=== PATIENT | female | born 1975 | race Two or more races ===

== ENCOUNTER → 2016-06-12 | Outpatient (CLI) | payer BC ==
[2016-06-12 14:35] LABS: CHLORIDE,CL 110 mmol/L (98-110); SODIUM,NA 140 mmol/L (136-146)
== END ==
LOC: MW.CHRC 13:40
PROVIDERS: ATTEND Family Medicine
DX: E05.00 Thyrotoxicosis with diffuse goiter without thyrotoxic crisis or storm (principal); E03.9 Hypothyroidism, unspecified
CPT/HCPCS: 36415; 80053; 84439; 84443; 84481; 85025

== ENCOUNTER → 2016-06-23 | Outpatient (CLI) | payer BC | LOC: MW.CHRC 09:52 | PROVIDERS: ATTEND Family Medicine | DX: E05.00 Thyrotoxicosis with diffuse goiter without thyrotoxic crisis or storm (principal) | CPT/HCPCS: 36415; 80048; 84439; 84443; 84481; 85025 ==

== ENCOUNTER → 2016-07-14 | Outpatient (CLI) | payer BC ==
--- NOTE | 2016-07-24 16:54 | NM ---
EXAM DATE: 07/14/16 PATIENT'S AGE: 40 ADDENDUM: Additional images were obtained at rest following the administration of 26.3 mCi of technetium 99m labeled sestamibi. IMPRESSION: The previously demonstrated small defect along the anterior wall towards the apex is not well characterized on the rest imaging. The ejection fraction is mildly decreased at 46%. TID is 1.23. A trace myocardial ischemia along the anterior wall of the midportion to the base is not excluded. EXAMINATION: Nuclear medicine myocardial perfusion study HISTORY: Atrial fibrillation. PROCEDURE: Following intravenous administration of 0.4 mg of Lexiscan and 27.1 mCi of technetium 99m sestamibi, stress SPECT images including gating imaging was performed. FINDINGS: Stress myocardial SPECT images demonstrates a small area of mildly decreased perfusion along the anterior wall towards the apex. Reviewing the source images this likely represents breast attenuation artifact. Review of gated images demonstrates mild generalized hypokinesis with normal wall thickening. The left ventricular ejection fraction is 37 %. The left ventricular chamber size is normal. IMPRESSION: 1. Probable breast attenuation artifact without definite perfusion abnormalities 2. Normal ventricular chamber size however decreased ejection fraction of 37 %. MTDD
== END | disposition home or self-care (01) ==
LOC: MW.NM 12:57
PROVIDERS: ATTEND Internal Medicine
DX: I50.20 Unspecified systolic (congestive) heart failure (principal); I48.91 Unspecified atrial fibrillation
CPT/HCPCS: 78451; A9500

== ENCOUNTER → 2016-07-21 | Outpatient (CLI) | payer BC ==
[2016-07-21 15:51] LABS: CHLORIDE,CL 110 mmol/L (98-110); SODIUM,NA 140 mmol/L (136-146)
== END ==
LOC: MW.CHRC 15:07
PROVIDERS: ATTEND Family Medicine
DX: I48.91 Unspecified atrial fibrillation (principal); R94.5 Abnormal results of liver function studies; E05.00 Thyrotoxicosis with diffuse goiter without thyrotoxic crisis or storm; I50.20 Unspecified systolic (congestive) heart failure; E03.9 Hypothyroidism, unspecified
CPT/HCPCS: 36415; 80053; 84439; 84443; 84445; 84481; 85025; 86376

== ENCOUNTER → 2016-07-29 | Outpatient (CLI) | payer BC ==
--- NOTE | 2016-07-29 16:09 | NM ---
EXAMINATION: Nuclear medicine and radioactive I-131 therapy for hyperthyroidism. HISTORY: Radius disease. PROCEDURE: Written informed consent was obtained from the patient. Patient has had the family planni ng procedure. Written precautions and instructions were given to the patient. Patient lab values and scan were previously reviewed. After explaining the precautions of after therapy and especially wit h radioactive I-131 with possibility of hypothyroidism on long-term to the possibility for taking me dication for hypothyroidism for rest of her life with the thyroxine and minor possible side effects related to therapy and precautions with the patient and 15.7 mCi of radioactive I-131 was administer ed orally without any immediate complications. Patient is requested to follow with her ordering phys [facility]. IMPRESSION: Radioactive I-131 therapy ( 15.7 mCi) for hyperthyroidism.
== END ==
LOC: MW.NM 13:05
PROVIDERS: ATTEND Family Medicine
DX: E05.00 Thyrotoxicosis with diffuse goiter without thyrotoxic crisis or storm (principal)
CPT/HCPCS: 79005; 79005-26

== ENCOUNTER → 2016-08-07 | Outpatient (CLI) | payer BC | LOC: MW.CHRC 09:27 | PROVIDERS: ATTEND Family Medicine | DX: I48.91 Unspecified atrial fibrillation (principal) | CPT/HCPCS: 36415; 80048; 84439; 84481 ==

== ENCOUNTER → 2016-08-08 | Outpatient (CLI) | payer BC | LOC: MW.CHRC 11:17 | PROVIDERS: ATTEND Family Medicine | DX: E05.00 Thyrotoxicosis with diffuse goiter without thyrotoxic crisis or storm (principal) | CPT/HCPCS: 36415; 84443 ==

== ENCOUNTER → 2016-08-29 | Outpatient (CLI) | payer BC | LOC: MW.CHRC 10:54 | PROVIDERS: ATTEND Family Medicine | DX: E05.00 Thyrotoxicosis with diffuse goiter without thyrotoxic crisis or storm (principal); I50.20 Unspecified systolic (congestive) heart failure; I48.91 Unspecified atrial fibrillation | CPT/HCPCS: 36415; 84439; 84443; 84481 ==

== ENCOUNTER 2016-10-03 16:14 | Emergency (ER) | payer BC ==
[2016-10-03] MEDS ORDERED: Sodium Chloride 0.9% 10 ML Syringe FLUSH PRN (16:19)
[2016-10-03] MEDS ORDERED: Sodium Chloride 0.9% 2.5 ML Syringe FLUSH PRN (16:19)
[2016-10-03] MEDS ORDERED: Ondansetron 4 MG/2 ML SDV IVPUSH ONE (16:22)
[2016-10-03] MEDS ORDERED: HYDROmorphone 2 MG/ML Syringe IVPUSH ONE (16:22)
--- NOTE | 2016-10-03 16:26 | EDM.PDOC ---
[id number] Chief Complaint: Abdominal Pain Stated Complaint: PT HAS STOMACH PAINS Time Seen by Provider: 10/03/16 16:17 - Related Data Allergies Allergy/AdvReac Type Severity Reaction Status Date / Time No Known Allergies Allergy Verified 10/03/16 16:17 Home Meds: Home Meds Lisinopril [Prinivil] 2.5 mg PO DAILY #30 tablet 01/23/16 [Rx] Pantoprazole Sodium [Protonix] 40 mg PO DAILY #30 tablet. 01/23/16 [Rx] Dabigatran [Pradaxa] 0 mg PO BID 10/03/16 [History] Methimazole 20 mg PO ASDIRECTED 10/03/16 [History] ED ROS GENERAL - Review of Systems Review Of Systems: ROS reveals no pertinent complaints other than HPI. Course - Vital Signs Last Recorded V/S: Last Vital Signs Temp 36.4 C 10/03/16 19:53 Pulse 85 10/03/16 19:53 Resp 18 10/03/16 19:53 BP 97/66 10/03/16 19:53 Pulse Ox 99 10/03/16 19:53 - Orders/Labs/Meds Orders: Active Orders 24 hr Category Date Time Status EKG Documentation Completion [RC] STAT Care 10/03/16 16:18 Active Abdomen Pelvis w Cont [CT] Stat Exams 10/03/16 16:19 Taken Saline Lock Insert [OM.PC] Stat Oth 10/03/16 16:18 Ordered Labs: Laboratory Tests 10/03/16 10/03/16 10/03/16 Range/Units 16:50 16:50 16:50 INR 1.31 H (0.86-1.11) Sodium 137 (136-146) mmol/L Potassium 4.0 (3.5-5.1) mmol/L Chloride 106 (98-110) mmol/L Carbon Dioxide 22 (21-31) mmol/L BUN 9 (6.0-23.0) mg/dL Creatinine 0.9 (0.6-1.5) mg/dL Est Cr Clr Drug Dosing 68.73 mL/min Estimated GFR (MDRD) > 60.0 ml/min Glucose 91 (60-110) mg/dL Calcium 8.6 L (8.8-10.8) mg/dL Total Bilirubin 1.2 (0.1-1.5) mg/dL AST 13 (5-40) IU/L ALT 10 (8-54) IU/L Alkaline Phosphatase 103 (40-150) Total Protein 7.8 (6.0-8.0) g/dL Albumin 3.7 (3.5-5.0) g/dL Globulin 4.1 H (2.0-3.5) g/dL Albumin/Globulin Ratio 0.9 L (1.3-2.8) HCG, Qual NEGATIVE (NEG) Digoxin < 0.15 L (0.8-2.0) ng/mL Meds: Medications Discontinued Medications Generic Name Dose Route Start Last Admin Trade Name Freq PRN Reason Stop Dose Admin Hydromorphone HCl 0.5 mg 10/03/16 16:22 10/03/16 16:43 Dilaudid IVPUSH 10/03/16 16:23 0.5 mg ONETIME ONE Administration Sodium Chloride 1,000 mls @ 125 mls/hr 10/03/16 16:30 10/03/16 16:44 Normal Saline IV 125 mls/hr ASDIRECTED WALESKA Administration Piperacillin Sod/Tazobactam 50 mls @ 100 mls/hr 10/03/16 16:51 10/03/16 17:04 Sod 3.375 gm/ Sodium Chloride IV 10/03/16 17:20 100 mls/hr ONETIME ONE Administration Cefoxitin Sodium 2 gm/ Premix 50 mls @ 100 mls/hr 10/03/16 20:01 10/03/16 20: 22 IV 10/03/16 20:30 100 mls/hr ONETIME ONE Administration Cefoxitin Sodium Confirm 10/03/16 20:06 Mefoxin In Dextrose,Iso-Osm 2 Gm/50 Ml Administered 10/03/16 20:07 Dose 50 mls @ as directed .ROUTE .STK-MED ONE Cefoxitin Sodium Confirm 10/03/16 20:21 Mefoxin In Dextrose,Iso-Osm 2 Gm/50 Ml Administered 10/03/16 20:22 Dose 50 mls @ as directed .ROUTE .STK-MED ONE Iopamidol 90 ml 10/03/16 17:37 10/03/16 17:37 Isovue Multipack-370 (76%) IVPUSH 10/03/16 17:38 90 ml ONETIME STA Administration Ondansetron HCl 4 mg 10/03/16 16:22 10/03/16 16:43 Zofran IVPUSH 10/03/16 16:23 4 mg ONETIME ONE Administration Sodium Chloride 10 ml 10/03/16 16:19 10/03/16 16:44 Saline Flush FLUSH 10 ml ASDIRECTED PRN Administration Keep Vein Open Sodium Chloride 2.5 ml 10/03/16 16:19 10/03/16 16:44 Saline Flush FLUSH 2.5 ml ASDIRECTED PRN Administration Keep Vein Open Departure - Departure Disposition: DC/Tfer to Other 70 Condition: Good, Fair Clinical Impression: Abdominal mass, right lower quadrant - Discharge Information Referrals: PCP,None [Primary Care Provider] - Forms: ED Department Discharge - My Orders Last 24 Hours: My Active Orders 10/03/16 16:18 EKG Documentation Completion [RC] STAT Saline Lock Insert [OM.PC] Stat 10/03/16 16:19 Abdomen Pelvis w Cont [CT] Stat - Assessment/Plan Last 24 Hours: My Active Orders 10/03/16 16:18 EKG Documentation Completion [RC] STAT Saline Lock Insert [OM.PC] Stat 10/03/16 16:19 Abdomen Pelvis w Cont [CT] Stat <Miriam Green - Last Filed: 10/04/16 07:08> ED HPI GENERAL MEDICAL PROBLEM - History of Present Illness INITIAL COMMENTS - FREE TEXT/NARRATIVE: HISTORY AND PHYSICAL: History of present illness: The patient is a 40-year-old female who follows in our clinic with her traffic line painter and has a history of hypertension thyroid disease atrial fibrillation ---for which she takes Pradaxa--- and presented to the traffic line painter with complaints of one week of right lower and mid lower abdominal pain. She had blood work yesterday consisting of a CBC with differential and CMP and had the CBC repeated today along with a lactic acid any urine. She also underwent a abdominal ultrasound today and all those results have been reviewed by me. The traffic line painter came to the ER because of concerns over the ultrasound results and need for more emergent care then he can provide in the clinic. According to my review of the white blood cell count yesterday it was 20.88 with 79% neutrophils 8% bands and her CMP was normal. Today her WBC count is 21.14 with 73% neutrophils 15% bands and a lactic acid of 1.0. The patient had a UA today that was normal. The ultrasound today did reveal cholelithiasis with sludge and probably a polyp in the gallbladder and some gallbladder wall thickening and there is no pericholecystic fluid or Nino's sign. The common bile duct was normal. At the site of the patient's pain in the right lower abdomen there was a heterogeneous complex 12 cm area is very nonspecific by ultrasound and it was recommended that a CAT scan be performed. The patient is here in the ED for that workup. The patient tells me that she has had gradual onset of this right lower abdominal pain and is been associated with a subjective fever on and off and diarrhea. The patient states that every time she eats and drinks food she has a liquid stool although small volume. She has no urinary complaints no flank pain no upper abdominal pain no nausea or vomiting. She currently has no chest pain or shortness of breath. The patient has a history of a bilateral tubal ligation and irregular periods but does not have any history of ovarian problems or cysts. The patient describes the pain as aching and when she goes to have a bowel movement it is more sharp. The pain does not radiate. She has not taken anything today for the pain. The patient states she is compliant with all of her medications. The patient has only one sexual partner and essential intercourse was 2 weeks ago. She has no STD history or STD risk factors that she identifies Review of systems: As per history of present illness and below otherwise all systems reviewed and negative. Past medical history: As per history of present illness and as reviewed below otherwise noncontributory. Surgical history: As per history of present illness and as reviewed below otherwise noncontributory. Social history: No reported history of drug or alcohol abuse. Family history: As per history of present illness and as reviewed below otherwise noncontributory. Physical exam: General: Well-developed well-nourished female who is nontoxic but looks somewhat punky and is very quiet on my evaluation. Vital signs of been reviewed by me. HEENT: Atraumatic, normocephalic, pupils reactive, negative for conjunctival pallor or scleral icterus, mucous membranes moist, throat clear, neck supple, nontender, trachea midline. Lungs: Clear to auscultation, breath sounds equal bilaterally, chest nontender. Heart: S1S2, regular rate but irregular rhythm on my evaluation, negative for clicks, rubs, or JVD. Abdomen: Soft, nondistended, normoactive bowel sounds. There is tenderness in the right lower abdomen without rebound or guarding and the remainder the abdomen is without tenderness more specifically the right upper quadrant. Negative for masses or hepatosplenomegaly. Negative for costovertebral tenderness. Pelvis: Stable nontender. Genitourinary: Deferred. Rectal: Deferred. Extremities: Atraumatic, negative for cords or calf pain. Neurovascular unremarkable. No pedal edema or leg asymmetry Neuro: Awake, alert, oriented. Cranial nerves II through XII unremarkable. Cerebellum unremarkable. Motor and sensory unremarkable throughout. Exam nonfocal. Diagnostics: EKG CMP INR serum hCG dig level CT scan of the abdomen and pelvis Patient had a CBC lactic acid and UA done as an outpatient today Please note that there is some confusion as to whether the patient is taking digoxin as her med list from the traffic line painter office does not have it and she is unsure so I will do a digital level. The patient states compliance with all medications. 1620: I did talk to the patient's traffic line painter Dr. Ayala about the patient's Pradaxa use and possible need for surgery. He states that he is comfortable with surgery reversing the Pradaxa and then restarting it postoperatively and/or using other medications as needed perioperatively as indicated. 1830: Case was discussed with ; he will come to the ED review the CT scan and evaluate the patient for further care. Therapeutics: IV fluids NPO, Zosyn, Dilaudid Zofran Impression: Complex mass right lower quadrant etiology unclear with infection/leukocytosis; history of A. fib and Pradaxa use and ejection fraction 45% Definitive disposition and diagnosis as appropriate pending reevaluation and review of above. Please note that Dr. Browne came to the ER review the CAT scan and evaluated the patient and felt that transfer to [facility] for it the surgery was more appropriate and the patient was in agreement. The transfer was performed and facilitated by Dr. Catherine. There were no complications prior to the patient's departure. 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: Endocrine/Metabolic History: Reports: Hyperthyroidism - Infectious Disease History Infectious Disease History: Reports: Chicken Pox - Past Surgical History HEENT Surgical History: Reports: None GI Surgical History: Reports: None Social & Family History - Family History Family Medical History: Noncontributory Respiratory: Reports: Asthma : Reports: Other (See Below) Other Family History: kidney failure - grandmother Psychiatric: Reports: ADD Endocrine/Metabolic: Reports: Other (See Below) Other Endocrine/Metabolic Family History: Diabete, type unknown - Tobacco Use Smoking Status *Q: Current Every Day Smoker Years of Tobacco use: 15 Packs/Tins Daily: 1 Used Tobacco, but Quit: No - Caffeine Use Caffeine Use: Reports: Coffee, Soda, Tea - Alcohol Use Days Per Week of Alcohol Use: 2 Number of Drinks Per Day: 4 Total Drinks Per Week: 8 - Recreational Drug Use Recreational Drug Use: No ED ROS GENERAL - Review of Systems Review Of Systems: ROS reveals no pertinent complaints other than HPI. ED EXAM, GENERAL - Physical Exam Exam: See Below (See dictation) Course - Orders/Labs/Meds Labs: Laboratory Tests 10/03/16 10/03/16 10/03/16 Range/Units 16:50 16:50 16:50 INR 1.31 H (0.86-1.11) Sodium 137 (136-146) mmol/L Potassium 4.0 (3.5-5.1) mmol/L Chloride 106 (98-110) mmol/L Carbon Dioxide 22 (21-31) mmol/L BUN 9 (6.0-23.0) mg/dL Creatinine 0.9 (0.6-1.5) mg/dL Est Cr Clr Drug Dosing 68.73 mL/min Estimated GFR (MDRD) > 60.0 ml/min Glucose 91 (60-110) mg/dL Calcium 8.6 L (8.8-10.8) mg/dL Total Bilirubin 1.2 (0.1-1.5) mg/dL AST 13 (5-40) IU/L ALT 10 (8-54) IU/L Alkaline Phosphatase 103 (40-150) Total Protein 7.8 (6.0-8.0) g/dL Albumin 3.7 (3.5-5.0) g/dL Globulin 4.1 H (2.0-3.5) g/dL Albumin/Globulin Ratio 0.9 L (1.3-2.8) HCG, Qual NEGATIVE (NEG) Digoxin < 0.15 L (0.8-2.0) ng/mL Departure - Departure Time of Disposition: 19:30 Condition: Fair
[2016-10-03] MEDS ORDERED: Sodium Chloride 0.9% 1,000 ML IV SCH (16:30)
[2016-10-03] MEDS ORDERED: Piperacillin/Tazobactam 3.375 GM in Sodium Chloride 0.9% 50 ML IV ONE (16:51)
[2016-10-03 17:17] LABS: CHLORIDE,CL 106 mmol/L (98-110); SODIUM,NA 137 mmol/L (136-146)
[2016-10-03] MEDS ORDERED: Iopamidol 755 MG/ML 500 ML Multipack Bottle IVPUSH STA (17:37)
[2016-10-03 19:53] VITALS: BP 97/66
[2016-10-03] MEDS ORDERED: cefOXitin 2 GM in Premix Bag 1 BAG IV ONE (20:01)
--- NOTE | 2016-10-03 20:45 | HP ---
DATE OF : 1975 PRIMARY CARE PHYSICIAN: None PCP This is a consult from ER doctor, Dr. Miriam Green. CONCERNING QUESTION: Right pelvis complex collection. HISTORY OF PRESENT ILLNESS: The patient is a 40-year-old lady, who recently returned from [facility] on September 18 that is around 2 weeks from today and during the flight, she experienced right lower quadrant pain and pain subsequently got worse that required her to seek help with Cardiology. The patient has atrial fibrillation and is on Pradaxa anticoagulation and her Cardiology sent her to the emergency room. In the emergency room, had workup and she were noted to have a large complex pelvis collection. Radiology reading is possible tubo-ovarian abscess versus a perforated appendicitis. The patient denied any dysuria, dyspareunia, or vaginal discharge. The patient admits the pain when it first started in the right lower quadrant and it gradually started. It was very painful. It was almost like 8/10 on a pain scale and today, she said she drove her own car to the emergency room. Her pain is 1/10. Denies fever or chills. The patient has persistent diarrhea for the last 2 weeks and sometimes nausea. PAST MEDICAL HISTORY: Significant for no diabetes, SD, CVA, or hypertension. PAST SURGICAL HISTORY: The patient had 2 normal vaginal deliveries and tubal ligation. MEDICATIONS: Please refer to nursing notes for detail. ALLERGIES: Please refer to nursing notes for detail. PHYSICAL EXAMINATION: GENERAL: A very pleasant lady, soft spoken, well mannered, in no acute distress. HEENT: Normocephalic, atraumatic. Sclerae anicteric. LUNGS: Clear to auscultation. HEART: Normal rate and rhythm. ABDOMEN: Soft, nondistended. No pulsating, tender midline abdominal structure. Exquisite tenderness on the right lower quadrant and there is no rebound tenderness. LABORATORY DATA: The patient's white count is 20. CAT scan shows a large right pelvis collection and appendix and ovaries not well visualized. IMPRESSION: Right lower quadrant collection, possible perforated appendicitis versus tuboovarian abscess. The patient would benefit from having a CT-guided drainage that has been going on for 2 weeks and the patient is also on Pradaxa for anticoagulation for atrial fibrillation. According to her weather clerk, the patient is all right to have it reversed to do surgery or radiology procedure if the need arises. With everything considered, the patient would benefit from Interventional Radiology and right now, it is 8 o'clock in the evening, talking to the emergency room to the nursing staff, interventional radiologist is not available in the hospital and would benefit from being transferred out. Discussed w Melody Gordillo in [place], he would gladly accept the transfer. The patient will go with all the documentation and chart and imaging study and the blood work, and the patient will eventually come back to [place] for either management of the drain after the CT-guided placement or interval appendectomy in 3 to 6 months. As always, thank you for the kind referral. GURVINDER TOWNSEND /[id number] SILVIA
--- NOTE | 2016-10-06 09:58 | CT ---
EXAM DATE: 10/03/16 PATIENT'S AGE: 40 Patient: CAN ELY Facility: [place], [place] Site . Site : 1975 Study: CT Abdomen/Pelvis [id number]/23/2017 5:55:16 PM Ordering Physician: Peter Pineda Final Report: INDICATION: Abdominal pain. Abnormal ultrasound findings earlier today, a CT recommended. TECHNIQUE: CT abdomen and pelvis acquired with i.v. 90 mL Isovue 370. Coronal and sagittal reformats were obtained. COMPARISON: Abdominal ultrasound earlier on 10/03/2016. 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 Lower chest: Imaged lung bases are clear. No free air. Inferior heart normal in size. No pericardial or pleural effusion. Liver: Unremarkable. Spleen: Unremarkable. Pancreas: Unremarkable. Gallbladder and bile ducts: Calcified gallstone. No acute inflammatory changes in the gallbladder fossa. Bile ducts normal in caliber. Kidneys: Unremarkable. No kidney or ureteral stones and no hydronephrosis seen. Adrenal glands: Unremarkable. GI tract: Loops of bowel are normal in caliber. No acute inflammatory changes involving large bowel. Normal appendix not clearly identified right lower quadrant. Acute inflammatory changes in the right pelvis with complex fluid collection and peripheral enhancement. Loops of small bowel are normal in caliber. Complex fluid collection in the right pelvis suspicious for possible pelvic inflammatory disease and tubo-ovarian abscess versus complications of acute appendicitis. Vascular: Unremarkable. Lymph nodes: Unremarkable. Pelvic Organs: Uterus unremarkable. Ovaries not clearly identified. Bones: Unremarkable for age. IMPRESSION: 1. Complex fluid collection in the right pelvis in patient with abdominal pain and leukocytosis. Ovaries and appendix are not clearly identified. Differential includes pelvic inflammatory disease with right tubo-ovarian abscess versus sequela from possible perforated acute appendicitis. 2. Cholelithiasis with no CT imaging evidence of acute cholecystitis or abnormal biliary dilatation Dictated by Danyel Maria MD @ 10/03/2016 6:18:41 PM Dictated by: Danyel Maria MD @ 10/03/2016 18:18:49 (Electronic Signature) Report Signed by Proxy. [facility]
== END 2016-10-03 20:35 | disposition other institution (70) ==
LOC: MW.ED 16:14
DX: R19.03 Right lower quadrant abdominal swelling, mass and lump (principal); I10 Essential (primary) hypertension; I48.91 Unspecified atrial fibrillation; E05.90 Thyrotoxicosis, unspecified without thyrotoxic crisis or storm; F17.210 Nicotine dependence, cigarettes, uncomplicated; Z79.899 Other long term (current) drug therapy; R10.13 Epigastric pain; D72.829 Elevated white blood cell count, unspecified; K80.20 Calculus of gallbladder without cholecystitis without obstruction
CPT/HCPCS: 36415; 71020; 74177; 76700; 80053; 80162; 81001; 83605; 84703; 85025; 85610; 87040; 93005; 96361; 96365; 96375; 99284; J1170; J2405; J2543; J7040; J7050; Q9967; 99285